=== PATIENT | female | born 1980 | race Caucasian/White ===

== ENCOUNTER 2017-02-22 19:47 | Emergency (ER) | payer OTHER ==
[2017-02-22 20:19] LABS: Hematocrit 37.5 % (36.0-47.0); Mean Platelet Volume 7.1 fL (7.4-10.4); Red Blood Cell (RBC) Count 4.32 mill/uL (4.20-5.40); White Blood Cell (WBC) Count 5.2 thou/uL (4.8-10.8)
[2017-02-22 20:40] LABS: ALT (SGPT) 12 U/L (8-55); AST (SGOT) 12 U/L (5-34); Alkaline Phosphatase 45 U/L (40-150); Anion Gap 13 mmol/L (10-20); BUN (Urea Nitrogen) 9 mg/dL (7.0-18.7); Bilirubin, Total 0.2 mg/dL (0.2-1.2); Calc. Creatinine Clearance 0 mL/min (70-130); Calcium 8.8 mg/dL (7.8-10.44); Carbon Dioxide 21 mmol/L (22-29); Chloride 112 mmol/L (98-107); Estimated GFR-MDRD 90; Globulin 2.7 g/dL (2.4-3.5); Protein, Total 6.5 g/dL (6.0-8.3)
[2017-02-22 20:45] LABS: Neutrophil 37 % (42-75)
[2017-02-22] MEDS ORDERED: Potassium Bicarbonate/Cit Ac 25 MEQ TAB ONE (21:19)
== END 2017-02-22 21:24 | disposition home or self-care (01) ==
LOC: ERS 19:47
DX: E87.6 Hypokalemia (principal); F41.9 Anxiety disorder, unspecified; F32.9 Major depressive disorder, single episode, unspecified
CPT/HCPCS: 36415; 80053; 85025; 93005; 96360